=== PATIENT | male | born 1990 | race Caucasian/White ===

== ENCOUNTER 2016-11-02 01:08 | Emergency (ER) | payer SELFPAY ==
[~2016-11-02] VITALS: Ht 165.1 cm; Wt 59.1 kg
[~2016-11-02 01:08] MED LIST: IBUP-1542 PO
[2016-11-02 01:19] VITALS: Ht 165.1 cm; Wt 59.1 kg
[2016-11-02] MEDS ORDERED: CEFAZOLIN 1 GM INJ IM ONE (01:30)
[2016-11-02] MEDS ORDERED: DIPHTH/TET/ACEL PERTUSS (ADULT) 0.5 ML VIAL IM* ONE (01:30)
[2016-11-02 02:00] VITALS: BP 140/75; PULSE 105; RESP 18
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
[2016-11-02] MEDS ORDERED: TRAM50TA2 PO (02:30)
[2016-11-02] MEDS ORDERED: CEPH-443 PO (02:30)
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
== END 2016-11-02 02:50 | disposition home or self-care (01) ==
LOC: E/R 01:08
DX: S31.819A Unspecified open wound of right buttock, initial encounter (principal); F17.210 Nicotine dependence, cigarettes, uncomplicated; Y08.89XA Assault by other specified means, initial encounter
CPT/HCPCS: 72170; 73510; 74176; 90471; 90715; 96372; 99285; J0690